=== PATIENT | female | born 1965 | race Asian ===

== ENCOUNTER 2021-07-27 08:34 | Outpatient (CLI) | payer BC | END 2021-07-27 08:35 | disposition home or self-care (01) | LOC: CSHMAMMO 08:34 | PROVIDERS: ATTEND Obstetrics & Gynecology | DX: Z12.31 Encounter for screening mammogram for malignant neoplasm of breast (principal) | CPT/HCPCS: 77063; 77067 ==

== ENCOUNTER 2024-09-23 11:19 | Outpatient (CLI) | payer BC | END 2024-09-23 11:20 | disposition home or self-care (01) | LOC: CSHULT 11:19 | PROVIDERS: ATTEND Student in an Organized Health Care Education/Training Program | DX: E07.9 Disorder of thyroid, unspecified (principal); E07.89 Other specified disorders of thyroid | CPT/HCPCS: 76536 ==